=== PATIENT | male | born 1980 | race Caucasian/White ===

== ENCOUNTER 2024-10-31 12:22 | Emergency (ER) | payer OTHER ==
[~2024-10-31] VITALS: Ht 172.7 cm; Wt 68.0 kg
[2024-10-31] MEDS ORDERED: AMOCLA875 PO (12:44)
[2024-10-31] MEDS ORDERED: IBUP600 PO (12:44)
[2024-10-31] MEDS ORDERED: Ketorolac Tromethamine 15mg Vial IM ONE (12:50)
== END 2024-10-31 14:04 | disposition home or self-care (01) ==
LOC: ER 12:22
DX: K04.7 Periapical abscess without sinus (principal)
CPT/HCPCS: 96372; 99283-25; J1885

== ENCOUNTER 2024-11-19 16:48 | Emergency (ER) | payer OTHER ==
[~2024-11-19] VITALS: Ht 167.6 cm; Wt 70.3 kg
[~2024-11-19 16:48] MED LIST: AMOCLA875 PO; IBUP600 PO
== END 2024-11-19 20:11 | disposition home or self-care (01) ==
LOC: ER 16:48
DX: S82.002A Unspecified fracture of left patella, initial encounter for closed fracture (principal); V00.131A Fall from skateboard, initial encounter; Z59.89 Other problems related to housing and economic circumstances; Z79.2 Long term (current) use of antibiotics; Z79.1 Long term (current) use of non-steroidal anti-inflammatories (NSAID)
CPT/HCPCS: 29505; 73562-LT; 73590; 73610; 73630; 99283-25

== ENCOUNTER 2024-11-27 15:27 | Emergency (ER) | payer OTHER ==
[~2024-11-27] VITALS: Ht 172.7 cm; Wt 72.6 kg
== END 2024-11-27 17:59 | disposition left against medical advice (07) ==
LOC: ER 15:27
DX: M25.562 Pain in left knee (principal); M25.662 Stiffness of left knee, not elsewhere classified; Z53.29 Procedure and treatment not carried out because of patient's decision for other reasons
CPT/HCPCS: 99281

== ENCOUNTER 2024-12-11 02:47 | Emergency (ER) | payer OTHER ==
[~2024-12-11] VITALS: Ht 172.7 cm; Wt 54.4 kg
[2024-12-11] MEDS ORDERED: Acetaminophen 500 MG Tab PO ONE (05:00)
[2024-12-11] MEDS ORDERED: Ibuprofen 600 MG Tab PO ONE (05:00)
== END 2024-12-11 05:15 | disposition home or self-care (01) ==
LOC: ER 02:47
DX: S00.83XA Contusion of other part of head, initial encounter (principal); Z79.2 Long term (current) use of antibiotics; W01.190A Fall on same level from slipping, tripping and stumbling with subsequent striking against furniture, initial encounter
CPT/HCPCS: 70450; 70486; 72125; 99283-25; A9270

== ENCOUNTER 2024-12-18 02:01 | Emergency (ER) | payer OTHER ==
[~2024-12-18] VITALS: Ht 172.7 cm; Wt 70.8 kg
== END 2024-12-18 04:45 | disposition home or self-care (01) ==
LOC: ER 02:01
DX: E86.0 Dehydration (principal); Z59.89 Other problems related to housing and economic circumstances
CPT/HCPCS: 99284-25